=== PATIENT | female | born 1985 | race Caucasian/White ===

== ENCOUNTER 2016-08-29 09:16 | Emergency (ER) | payer MEDICAID ==
[2016-08-29] MEDS ORDERED: DEXAMETHASONE 10 MG/ML VIAL PO STA (12:21)
[2016-08-29] MEDS ORDERED: DEXAMETHASONE 10 MG/ML VIAL ONE (12:25)
[2016-08-29] MEDS ORDERED: SODIUM CHLORIDE 0.9% 1,000 ML IV ONE (13:07)
[2016-08-29] MEDS ORDERED: cefTRIAXone 1 GM in SODIUM CHLORIDE 0.9% MINIBAG 100 ML IV STA (13:07)
[2016-08-29] MEDS ORDERED: cefTRIAXone 1 GM VIAL ONE (13:09)
== END 2016-08-29 14:31 | disposition home or self-care (01) ==
DX: E86.0 Dehydration (principal); J10.1 Influenza due to other identified influenza virus with other respiratory manifestations; H66.002 Acute suppurative otitis media without spontaneous rupture of ear drum, left ear; F17.200 Nicotine dependence, unspecified, uncomplicated

== ENCOUNTER 2016-09-30 22:46 | Emergency (ER) | payer MEDICAID, OTHER ==
[2016-09-30] MEDS ORDERED: oxyCODONE/ACET 5/325 Prepack 4 PO STA (22:55)
[2016-09-30] MEDS ORDERED: oxyCOD/ACETAMIN 5 MG/325 MG TABLET PO STA (22:55)
[2016-09-30] MEDS ORDERED: oxyCODONE/ACET 5/325 Prepack 4 PO ONE (22:57)
[2016-09-30] MEDS ORDERED: oxyCOD/ACETAMIN 5 MG/325 MG TABLET PO ONE (22:57)
[2016-10-01] MEDS ORDERED: BACITRACIN OINT TOP STA (00:03)
[2016-10-01] MEDS ORDERED: fentaNYL 100 MCG/2 ML VIAL IM STA (00:07)
[2016-10-01] MEDS ORDERED: fentaNYL 100 MCG/2 ML VIAL ONE (00:10)
== END 2016-10-01 01:08 | disposition home or self-care (01) ==
DX: T23.261A Burn of second degree of back of right hand, initial encounter (principal); T31.0 Burns involving less than 10% of body surface; F32.9 Major depressive disorder, single episode, unspecified; F41.0 Panic disorder [episodic paroxysmal anxiety]; F17.200 Nicotine dependence, unspecified, uncomplicated; X10.0XXA Contact with hot drinks, initial encounter; Y92.69 Other specified industrial and construction area as the place of occurrence of the external cause; Y99.0 Civilian activity done for income or pay
CPT/HCPCS: 1040M; 96372; 99283; 99284; A9270

== ENCOUNTER 2017-07-28 09:57 | Emergency (ER) | payer MEDICAID ==
[2017-07-28] MEDS ORDERED: KETOROLAC 30 MG/ML VIAL IVP STA (11:41)
[2017-07-28] MEDS ORDERED: SODIUM CHLORIDE 0.9% 1,000 ML IV ONE (11:42)
[2017-07-28] MEDS ORDERED: METOCLOPRAMIDE 10 MG/2 ML VIAL IVP STA (11:44)
[2017-07-28] MEDS ORDERED: METOCLOPRAMIDE 10 MG/2 ML VIAL ONE (11:51)
[2017-07-28] MEDS ORDERED: KETOROLAC 15 MG/ML VIAL ONE (11:51)
--- NOTE | 2017-07-28 12:03 | ED Physician Documentation ---
PD HPI HEADACHE - Stated complaint Stated Complaint: MIGRAINE - Chief complaint Chief Complaint: Neuro - Additional information Additional information: 32-year-old female presents to the emergency department with headache similar to prior migraines. She reports that she has migraines frequently but is able to control them usually with ibuprofen Tylenol. In this particular case these have not relieved her symptoms fully. She does not have any new or different symptoms. She did have vomiting overnight last night, she said vomiting is usually acute that she is not going to be able to get control of her symptoms at home. 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 She has no neck stiffness,No fevers, no rash. PD PAST MEDICAL HISTORY - Past Medical History Cardiovascular: None Respiratory: None Neuro: Headache/migraine Endocrine/Autoimmune: None GI: None REHAB AID: None : None Psych: Depression, Anxiety, Panic attacks Musculoskeletal: None Derm: None - Past Surgical History Past Surgical History: No - Present Medications Home Medications: Ambulatory Orders Medication Instructions Recorded Confirmed No Known Home Medications [No 07/28/17 07/28/17 Known Home Medications] - Allergies Allergies/Adverse Reactions: Allergies Allergy/AdvReac Type Severity Reaction Status Date / Time promethazine HCl * AdvReac Intermediate crawl out Verified 07/28/17 10:03 [From Phenergan] of skin - Social History Does the pt smoke?: Yes Smoking Status: Current every day smoker Does the pt drink ETOH?: Yes Does the pt have substance abuse?: No - Immunizations Immunizations are current?: No Immunizations: TDAP >10years/unknown - POLST Patient has POLST: No PD ED PE NORMAL - Vitals Vital signs reviewed: Yes - General General: Alert and oriented X 3, No acute distress - HEENT HEENT: PERRL - Neck Neck: Supple, no meningeal sign - Cardiac Cardiac: RRR, No murmur - Respiratory Respiratory: Clear bilaterally - Abdomen Abdomen: Normal bowel sounds, Soft, Non tender, Non distended - Derm Derm: Warm and dry - Extremities Extremities: No deformity - Neuro Neuro: Alert and oriented X 3 - Psych Psych: Normal mood, Normal affect Results - Vitals Vitals: Oxygen O2 Source Room air PD MEDICAL DECISION MAKING - ED course ED course: 32 year old f with migraine typical of previous migraines. Normal neurologic exam, no fevers, no neck stiffness do not suspect SAH, meningitis, sinus venous thrombosis. 1:45 PM patient feels improved. Her headache is not completely gone she will have a dose of IV Benadryl and be discharged in the care of her father. Departure - Departure Disposition: 01 Home, Self Care Clinical Impression: Migraine, Headache Condition: Good Instructions: ED Headache Migraine Comments: Make an appointment follow-up with your primary care doctor about your headaches. If you have never seen a neurologist about your chronic headaches you may ask them if they think that is a good idea. Return to the emergency department if you are worsening headache with nausea and vomiting or fevers. Forms: Activity restrictions Discharge Date/Time: 07/28/17 14:17
[2017-07-28] MEDS ORDERED: diphenhydrAMINE INJ 50 MG/ML VIAL IVP STA (13:34)
[2017-07-28 13:42] VITALS: BP 115/72
[2017-07-28] MEDS ORDERED: diphenhydrAMINE INJ 50 MG/ML VIAL ONE (13:42)
== END 2017-07-28 14:17 | disposition home or self-care (01) ==
LOC: ED 09:57
DX: G43.909 Migraine, unspecified, not intractable, without status migrainosus (principal); F17.200 Nicotine dependence, unspecified, uncomplicated
CPT/HCPCS: 36415; 96361; 96374; 96375; 99283

== ENCOUNTER 2019-12-15 08:00 | Outpatient (CLI) | payer MEDICAID | END 2019-12-15 08:01 | disposition home or self-care (01) | LOC: LAB.R 08:00 | PROVIDERS: ATTEND Family Medicine | DX: R50.9 Fever, unspecified (principal) | CPT/HCPCS: 81599 ==

== ENCOUNTER 2020-11-29 01:34 | Emergency (ER) | payer MEDICAID ==
[2020-11-29] MEDS ORDERED: IBUPROFEN 600 MG TABLET PO STA (01:46)
--- NOTE | 2020-11-29 01:48 | ED Physician Documentation ---
PD HPI LOWER EXT INJURY - Stated complaint Stated Complaint: R ANKLE PX - Chief complaint Chief Complaint: Trauma Ext - History obtained from History obtained from: Patient - History of Present Illness PD HPI LOW EXT INJURY LOCATION: Right, Ankle Type of injury: Fall Where injury occurred: Work Timing - onset: Enter time (17:30) Timing - details: Abrupt onset Improved by: Rest Worsened by: Moving, Palpating Associated symptoms: Swelling - Additional information Additional information: patient was arriving to work and walking to her car at approximately 5:30 PM when she slipped off of a retaining wall she was walking on, causing her right ankle to twist. She experienced sudden onset of right ankle pain which has gradually worsened along with swelling. She is able to partially weight bear. Denies numbness, weakness. Denies other injury. 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 : None Psych: Depression, Anxiety, Panic attacks Musculoskeletal: None Derm: None - Past Surgical History Past Surgical History: No - Present Medications Home Medications: Ambulatory Orders Medication Instructions Recorded Confirmed Buspirone HCl 10 mg PO BID 11/29/20 11/29/20 DULoxetine [Cymbalta] 60 mg PO DAILY 11/29/20 11/29/20 SUMAtriptan [Imitrex] 50 mg PO ONCE PRN 11/29/20 11/29/20 Topiramate [Topamax] 25 mg PO DAILY 11/29/20 11/29/20 - Allergies Allergies/Adverse Reactions: Allergies Allergy/AdvReac Type Severity Reaction Status Date / Time promethazine HCl * AdvReac Intermediate crawl out Verified 07/28/17 10:03 [From Phenergan] of skin - Social History Does the pt smoke?: Yes Smoking Status: Current every day smoker Does the pt drink ETOH?: Yes Does the pt have substance abuse?: No - Immunizations Immunizations are current?: No Immunizations: TDAP >10years/unknown - POLST Patient has POLST: No PD ED PE NORMAL - Vitals Vital signs reviewed: Yes - General General: Alert and oriented X 3, No acute distress, Well developed/nourished - Neuro Neuro: No motor deficit, No sensory deficit PD ED PE EXPANDED - Extremities Extremities: Tenderness, Swelling, Right ankle, Pedal Pulses Present, Other (tenderness, swelling right ankle, predominantly medial aspect. there are skin color changes that patient says are chronic and due to venous stasis) Results - Vitals Vitals: Vital Signs - 24 hr 11/29/20 11/29/20 01:37 03:53 Temperature 36.2 C L 36.8 C Heart Rate 71 63 Respiratory 18 20 Rate Blood Pressure 132/72 H 132/83 H O2 Saturation 100 100 Oxygen O2 Source Room air - Rads (name of study) right ankle xrays Radiology: Prelim report reviewed, See rad report PD MEDICAL DECISION MAKING - ED course Complexity details: reviewed results, re-evaluated patient, considered differential, d/w patient ED course: xrays are negative for acute findings (no evidence of fracture, dislocation). will treat as sprain with aircast splint and crutches to minimize weight bearing and promote healing. Departure - Departure Disposition: 01 Home, Self Care Clinical Impression: Right ankle sprain Condition: Good Instructions: ED Sprain Ankle W X Ray Follow-Up: LIU KENDALL ARNP [Primary Care Provider] - Comments: use the splint and crutches for 2 days to minimize movement of the ankle and to minimize weight-bearing. Since there is no fracture, you can weight-bear as tolerated, but for the first two days after the injury, it is best to avoid weight-bearing when possible. After the first two days, use the splint and crutches as needed for comfort. Discharge Date/Time: 11/29/20 03:55
[2020-11-29 03:55] VITALS: BP 132/83
--- NOTE | 2020-11-29 08:16 | XRAY Report ---
PROCEDURE: Ankle 3 View RT INDICATIONS: Trauma TECHNIQUE: 3 views of the ankle were acquired. COMPARISON: None FINDINGS: Bones: No fractures or dislocations. Ankle mortise is normally aligned. No suspicious bony lesions . Soft tissues: No tibiotalar joint effusion. Achilles tendon appears normal. IMPRESSION: No trauma found. Reviewed by: Hugh Jackson MD on 11/29/2020 8:15 AM PDT Approved by: Hugh Jackson MD on 11/29/2020 8:15 AM PDT Station ID: [id number]
--- OUTSIDE RECORDS SUMMARY | 2020-11-30 03:19 | EXTERNAL MEDICAL SUMMARY RPT | Continuity of Care Document ---
:1985 Demographics Phone Unavailable Preferred Language [place] Citizen Marital Status Unknown Gnosticist Affiliation Unknown Race Unknown Ethnic Group Unknown Author Organization [place] Address [address] [phone] Phone Care Team Providers Name Role Phone Duncan Unavailable Unavailable Problems date description facility 20200927 Pain in left ankle and joints of left f [facility] 20200927 Personal history of (healed) traumatic fracture [facility] Medications date description facility 20200927 Omeprazole 20 MG Enteric Coated Capsule [facility] 20201105 Ketorolac Tromethamine 10 MG Oral Table t [facility] Procedures date description facility 20200922 [facility] date description facility 20200927 [facility] date description facility 20201105 [facility] Vital Signs date measurement value source 20200927 BMI 50.3 kg/m2 20200927 BP_diastolic 70 mm[Hg] 20200927 BP_systolic 108 mm[Hg] 20200927 heart_rate 84 /min 20200927 height_metric 162.56 cm 20200927 height_standard 64 in 20200927 temperature_metric 37.17 C 20200927 temperature_standard 98.9 F 20200927 weight_metric 132.98 kg 20200927 weight_standard 293.17 lb date measurement value source 20201105 BMI 48.0 kg/m2 20201105 BP_diastolic 76 mm[Hg] 20201105 BP_systolic 127 mm[Hg] 20201105 heart_rate 76 /min 20201105 height_metric 162.56 cm 20201105 height_standard 64 in 20201105 respiration_rate 16 /min 20201105 temperature_metric 36.56 C 20201105 temperature_standard 97.8 F 20201105 weight_metric 57.61 kg 20201105 weight_standard 127.01 lb Social History date description facility [id number]
--- OUTSIDE RECORDS SUMMARY | 2020-11-30 03:19 | EXTERNAL MEDICAL SUMMARY RPT | Continuity of Care Document ---
:1985 Demographics Phone Unavailable Preferred Language Stateless Marital Status Unknown Mosque Affiliation Unknown Race Unknown Ethnic Group Unknown Author Organization [place] Address [address] [phone] Phone Care Team Providers Name Role Phone Duncan Unavailable Unavailable Problems date description facility 20200927 Pain in left ankle and joints of left f [facility] 20200927 Personal history of (healed) traumatic fracture [facility] Medications date description facility 20200927 Omeprazole 20 MG Enteric Coated Capsule [facility] 20201105 Ketorolac Tromethamine 10 MG Oral Table t [facility] Procedures date description facility 20200922 [facility] date description facility 20200927 [facility] date description facility 20201105 [facility] Vital Signs date measurement value source [...] 127.01 lb Social History date description facility [id number]
== END 2020-11-29 03:55 | disposition home or self-care (01) ==
LOC: ED 01:34
DX: S93.401A Sprain of unspecified ligament of right ankle, initial encounter (principal); X50.1XXA Overexertion from prolonged static or awkward postures, initial encounter; Y93.01 Activity, walking, marching and hiking; Y99.0 Civilian activity done for income or pay; F17.200 Nicotine dependence, unspecified, uncomplicated
CPT/HCPCS: 73610; 99283; A9270